=== PATIENT | female | born 1960 | race Caucasian/White ===

== ENCOUNTER → 2024-02-24 16:01 | Outpatient (REF) | payer BC, SELFPAY | LOC: WDC 16:01 | PROVIDERS: ATTENDING PHYSICIAN Internal Medicine | DX: Z12.31 Encounter for screening mammogram for malignant neoplasm of breast (principal) | CPT/HCPCS: 77063; 77067 ==

== ENCOUNTER → 2024-02-25 10:08 | Outpatient (REF) | payer BC, SELFPAY | LOC: RAD 10:08 | PROVIDERS: ATTENDING PHYSICIAN Internal Medicine | DX: Z13.820 Encounter for screening for osteoporosis (principal); Z78.0 Asymptomatic menopausal state | CPT/HCPCS: 77080 ==

== ENCOUNTER 2024-03-24 13:15 | Outpatient (RCR) | payer BC, SELFPAY | END 2024-03-24 23:59 | disposition home or self-care (01) | LOC: RPT 13:15 | PROVIDERS: ATTENDING PHYSICIAN Internal Medicine | DX: M54.2 Cervicalgia (principal); M54.6 Pain in thoracic spine; Z73.6 Limitation of activities due to disability | CPT/HCPCS: 97110; 97162; 97535 ==

== ENCOUNTER 2024-04-27 14:49 | Outpatient (RCR) | payer BC, SELFPAY | END 2024-04-27 23:59 | disposition home or self-care (01) | LOC: RPT 14:49 | PROVIDERS: ATTENDING PHYSICIAN Internal Medicine | DX: M54.2 Cervicalgia | CPT/HCPCS: 97010; 97110; 97140 ==

== ENCOUNTER 2024-05-22 06:48 | Outpatient (RCR) | payer BC, SELFPAY | END 2024-05-22 23:59 | disposition home or self-care (01) | LOC: ROT 06:48 | PROVIDERS: ATTENDING PHYSICIAN Physician Assistant; FAMILY PHYSICIAN Internal Medicine | DX: S62.326D Displaced fracture of shaft of fifth metacarpal bone, right hand, subsequent encounter for fracture with routine healing (principal); Z73.6 Limitation of activities due to disability | CPT/HCPCS: 97166; 97535 ==

== ENCOUNTER → 2025-02-27 07:32 | Outpatient (REF) | payer BC, SELFPAY | LOC: WDC 07:32 | PROVIDERS: ATTENDING PHYSICIAN Internal Medicine | DX: Z12.31 Encounter for screening mammogram for malignant neoplasm of breast (principal) | CPT/HCPCS: 77063; 77067 ==

== ENCOUNTER → 2025-03-02 07:21 | Outpatient (REF) | payer BC, SELFPAY | LOC: HWRAD 07:21 | PROVIDERS: ATTENDING PHYSICIAN Internal Medicine | DX: R14.0 Abdominal distension (gaseous) (principal); R19.5 Other fecal abnormalities | CPT/HCPCS: 76700 ==